=== PATIENT | male | born 1970 | race Caucasian/White ===

== ENCOUNTER → 2020-04-22 09:58 | Outpatient (BNVA) | payer MEDICAID, SELFPAY | PROVIDERS: Family Provider Family Medicine; PCP Family Medicine; Visit Provider Family Medicine | DX: I10 Essential (primary) hypertension (principal); E78.2 Mixed hyperlipidemia; R79.89 Other specified abnormal findings of blood chemistry; Z72.0 Tobacco use | CPT/HCPCS: 80053 ==

== ENCOUNTER → 2020-06-02 16:00 | Outpatient (BNVA) | payer MEDICAID, SELFPAY | PROVIDERS: Family Provider Family Medicine; PCP Family Medicine; Visit Provider Family Medicine | DX: N18.3 Chronic kidney disease, stage 3 (moderate) (principal) | CPT/HCPCS: 80048; 81000; 85025 ==

== ENCOUNTER → 2020-09-02 12:41 | Outpatient (BNVA) | payer MEDICAID, SELFPAY | PROVIDERS: Family Provider Family Medicine; PCP Family Medicine; Visit Provider Internal Medicine | DX: N18.30 Chronic kidney disease, stage 3 unspecified (principal) | CPT/HCPCS: 80069; 81003; 82043; 82306; 82310; 83970; 85025 ==

== ENCOUNTER → 2020-11-09 18:00 | Outpatient (BNVA) | payer MEDICAID, SELFPAY | PROVIDERS: Family Provider Family Medicine; PCP Family Medicine; Visit Provider Family Medicine | DX: I10 Essential (primary) hypertension (principal); E55.9 Vitamin D deficiency, unspecified; E78.2 Mixed hyperlipidemia; Z72.0 Tobacco use; E34.9 Endocrine disorder, unspecified | CPT/HCPCS: 80048; 80061 ==

== ENCOUNTER 2020-11-15 16:15 | Emergency (ER) | payer MEDICAID, SELFPAY ==
[2020-11-15 16:21] VITALS: BP 116/67; PULSE 83; RESP 18; TEMP 36.7; O2SAT 99; BMI 26.5
[2020-11-15 16:34] VITALS: BP 110/64; PULSE 81; RESP 20; O2SAT 100
--- NOTE | 2020-11-15 16:35 | XRR_ITS ---
PROCEDURE INFORMATION: Exam: XR Chest, 1 View Exam date and time: 11/15/2020 4:37 PM Age: 49 years old Clinical indication: Chest pain; Type not specified TECHNIQUE: Imaging protocol: XR of the chest Views: 1 view. COMPARISON: No relevant prior studies available. FINDINGS: Lungs: A calcified granuloma is seen in the right lung base. No acute airspace process is seen. Pleural space: Unremarkable. No pleural effusion. No pneumothorax. Heart/Mediastinum: Unremarkable. No cardiomegaly. Bones/joints: Unremarkable. XR/XR chest 1V portable [id number] IMPRESSION: No acute cardiopulmonary abnormality.
--- NOTE | 2020-11-15 16:36 | ECG_ITS ---
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
[2020-11-15 16:47] LABS: Basophils % 0.2 %; Eosinophils # 0.1 10^3/uL (0.0-0.8); Eosinophils % 0.8 %; Hemoglobin 11.6 g/dL (11.7-16.6); Lymphocytes # 1.3 10^3/uL (0.8-4.8); Lymphocytes % 14.8 %; Mean Corpuscular HGB Conc 32.2 g/dL (30.0-36.0); Mean Corpuscular Hemoglobin 29.1 pg (28.0-34.0); Mean Corpuscular Volume 90.2 fL (80-94); Mean Platelet Volume 11.3 fL (7.4-10.4); Monocytes # 0.8 10^3/uL (0.2-0.9); Monocytes % 9.7 %; Neutrophils # 6.31 10^3/uL (1.8-7.7); Neutrophils % 74.1 %; Nucleated Red Blood Cells % 0 %; Platelet Count 256 10^3/cmm (130-400); Red Blood Count 3.99 10^6/uL (4.1-5.3); Red Cell Distribution Width 13.3 % (12.1-15.1); White Blood Count 8.5 10^3/uL (4.0-10.0)
--- NOTE | 2020-11-15 16:55 | W.ED.ANXIETY ---
HPI - Anxiety General: Chief Complaint: Anxiety Stated Complaint: ANXIETY Time Seen by Provider: 11/15/20 16:22 Source: patient and family History of Present Illness: HPI narrative: Patient presents requesting medication for anxiety. He states that over the past month he has had multiple episodes of panic attacks where he is had chest pain and shortness of breath. He denies having any symptoms at present. He states that he was seen in a previous ER at [place] last week and then discharged home but did not get anything for anxiety. Family states that he has these attacks quite frequently. And that they have been worsening over the past month. They also state that he was recently told he had low potassium but they do not know how low it was. They state that he was given medication for his potassium but he has not started it yet. MD complaint: anxiety Onset (ago): month(s) (1) Associated symptoms: Reports chest pain and palpitations; Deny fever(s) or headache(s) Review of Systems General: Reports: 10 or more systems reviewed and unremarkable except in HPI and below Const: Denies: fever(s) Eyes: Denies: change in vision ENMT: Denies: throat pain Card: Reports: chest pain and palpitations Resp: Reports: dyspnea GI: Denies: abdominal pain : Denies: flank pain Musc: Denies: neck pain Skin/Breast: Denies: rash Neuro: Denies: headache(s) Psych: Reports: anxiety PFS ED PFSH: Medical History (Updated 11/15/20 @ 17:35 by Ricardo Alcantara MD) CKD (chronic kidney disease) Compression fracture of thoracic vertebra with routine healing Hyperlipidemia Hypertension Social History (Updated 11/09/20 @ 13:33 by Angelcia Ramirez LPN) Smoking and tobacco status: current every day smoker smokeless tobacco Alcohol intake: current Physical Exam Const: COMMON NORMALS: no acute distress, average body habitus, patient oriented x3, no limitations, healthy appearing, alert and well nourished HENMT: COMMON NORMALS: normocephalic, atraumatic, hearing grossly normal bilaterally, external ears normal, EAC's normal, TM's normal bilaterally, Normal external nose present, Normal nasal mucous membranes and turbinates present, moist oral mucous membranes, oropharynx normal, dentition normal and gingiva normal HEAD & SCALP: normocephalic and atraumatic NOSE: Normal external nose present and Normal nasal mucous membranes and turbinates present EXTERNAL EAR: Yes external ears normal EXTERNAL AUDITORY CANAL: EAC's normal TYMPANIC MEMBRANE: TM's normal bilaterally Eye: COMMON NORMALS: Equal, round and reactive pupils present, EOMs intact bilaterally, conjunctivae normal, no scleral icterus, no papilledema, normal visual samson by confrontation and fundi normal bilaterally CONJUNCTIVA: Yes conjunctivae normal PUPIL: Yes Equal, round and reactive pupils present DIRECT OPHTHALMOSCOPY: Yes no papilledema and Yes fundi normal bilaterally Neck/C-Spine: COMMON NORMALS: no JVD Chest: COMMONS NORMALS: normal inspection of the chest, normal palpation of entire chest wall, normal inspection of the breasts and normal palpation of the breasts Breast/axilla inspection: Yes normal inspection of the breasts BREAST/AXILLA PALPATION: Yes normal palpation of the breasts Resp: COMMON NORMALS: normal respiratory effort, No retractions, No use of accessory muscles, clear to auscultation bilaterally and percussion normal AUSCULTATION: clear to auscultation bilaterally PERCUSSION: percussion normal Cardio: COMMON NORMALS: no JVD, regular rate, regular rhythm, S1 normal heart sound present, S2 normal heart sound present, No gallops present (Cardio), No clicks present (Cardio), No murmurs present (Cardio), No rub (Cardio) and Peripheral pulses 2+ throughout RATE: regular rate RHYTHM: regular rhythm HEART SOUNDS: S1 normal heart sound present and S2 normal heart sound present PERIPHERAL PULSES: Peripheral pulses 2+ throughout GI: COMMON NORMALS: Normal to inspection, nondistended, normoactive bowel sounds present, Soft to palpation, non-tender, No hepatosplenomegaly present, no masses and no bruits PALPATION: Yes Soft to palpation and Yes No hepatosplenomegaly present : COMMON NORMALS: Yes no CVA tenderness, Yes normal external exam, Yes Testes normal, Yes scrotum normal, Yes no scrotal swelling and Yes No hernias present BLADDER/KIDNEY EXAM: Yes no CVA tenderness Back/Pelvis: COMMON NORMALS: no CVA tenderness Neuro: COMMON NORMALS: patient oriented x3 SENSORIUM/ORIENTATION: Yes alert Psych: COMMON NORMALS: mental status grossly normal and speech normal ATTITUDE: Yes calm SPEECH: Yes normal speech Course Vital Signs: Vital signs: Vital Signs Temperature 98.1 F 11/15/20 16:21 Pulse Rate 81 11/15/20 16:34 Respiratory Rate 20 H 11/15/20 16:34 Blood Pressure 110/64 11/15/20 16:34 Pulse Oximetry 100 11/15/20 16:34 MDM - Anxiety MDM Narrative: Medical decision making narrative: At present patient is calm and asymptomatic. Denies having any chest pain or shortness of breath at present. We will check some basic labs and if no significant abnormality will discharge patient home with Vistaril for his anxiety. Lab Data: Labs: Lab Results 11/15/20 11/15/20 11/15/20 Range/Units 16:42 16:42 16:42 WBC 8.5 (4.0-10.0) 10^3/ uL RBC 3.99 L (4.1-5.3) 10^6/u L Hgb 11.6 L (11.7-16.6) g/dL Hct 36.0 L (42.0-52.0) % MCV 90.2 (80-94) fL MCH 29.1 (28.0-34.0) pg MCHC 32.2 (30.0-36.0) g/dL RDW 13.3 (12.1-15.1) % Plt Count 256 (130-400) 10^3/c mm MPV 11.3 H (7.4-10.4) fL Neut % (Auto) 74.1 % Lymph % (Auto) 14.8 % [place] % (Auto) 9.7 % Eos % (Auto) 0.8 % Baso % (Auto) 0.2 % Neut # (Auto) 6.31 (1.8-7.7) 10^3/u L Lymph # (Auto) 1.3 (0.8-4.8) 10^3/u L [place] # (Auto) 0.8 (0.2-0.9) 10^3/u L Eos # (Auto) 0.1 (0.0-0.8) 10^3/u L Baso # (Auto) 0.0 (0.0-0.1) 10^3/u L Nucleated RBC % (a uto) 0 % Nucleated RBCs # 0.0 /100WBC Sodium 141 (136-145) mmol/L Potassium 3.6 (3.5-5.1) mmol/L Chloride 102 (98-107) mmol/L Carbon Dioxide 29 (22-29) mmol/L Anion Gap 13.6 (5-19) BUN 16 (6-20) mg/dL Creatinine 1.7 H (0.7-1.2) mg/dL GFR Calculation 42.7 L (90-130) mL/min Glucose 99 (65-115) mg/dL Calculated Osmolal ity 293 (285-295) mOsm/k g Calcium 8.9 (8.5-10.5) mg/dL Total Bilirubin 0.9 (0.15-1.2) mg/dL AST 19 (0-40) U/L ALT 12 (0-41) U/L Alkaline Phosphata se 99 (40-130) IU/L Troponin T Gen 5 n g/L 6 (0-15) ng/L Total Protein 8.0 (6.6-8.7) g/dL Albumin 3.8 (3.5-5.2) g/dL Globulin 4.2 (1.3-4.6) g/dL Discharge Plan Discharge Patient Disposition: Home Clinical Impression: Acute anxiety Condition: Stable Prescriptions: New Vistaril 50 mg capsule 50 mg PO BID PRN (Reason: anxiety) Qty: 30 RF: 0 No Action cholecalciferol (vitamin D3) [D3-50 Cholecalciferol] 1,250 mcg (50,000 unit) capsule 1,250 mcg PO .weekly 90 Days Qty: 13 RF: 1 potassium chloride 8 mEq tablet extended release 8 meq PO DAILY 90 Days Qty: 90 RF: 1 Tylenol Extra Strength 500 mg Tablet 1,000 mg PO PRN RF: 0 atorvastatin 20 mg tablet 20 mg PO QPM RF: 0 hydrochlorothiazide 25 mg tablet 25 mg PO QAM RF: 0 Discharge Orders: Discharge ED (Routine); Ordered 11/15/20 Ordered By: Ricardo Alcantara Referrals: Isamar Lyn MD [Primary Care Provider] - Coding Level of Care Code ED Housekeeper Nanny for Chg Fwd Exam Comprehensive
[2020-11-15 17:09] LABS: Alanine Aminotransferase 12 U/L (0-41); Albumin Level 3.8 g/dL (3.5-5.2); Alkaline Phosphatase 99 IU/L (40-130); Aspartate Amino Transferase 19 U/L (0-40); Blood Urea Nitrogen 16 mg/dL (6-20); Calcium 8.9 mg/dL (8.5-10.5); Carbon Dioxide 29 mmol/L (22-29); Chloride 102 mmol/L (98-107); Glomerular Filtration Rate 42.7 mL/min (90-130); Glucose 99 mg/dL (65-115); Osmolality Calculated 293 mOsm/kg (285-295); Sodium 141 mmol/L (136-145); Total Bilirubin 0.9 mg/dL (0.15-1.2)
[2020-11-15 17:11] LABS: Troponin T (5th) Once 6 ng/L (0-15)
[2020-11-15 17:28] LABS: Anion Gap 13.6 (5-19); Potassium 3.6 mmol/L (3.5-5.1)
[2020-11-15 17:45] VITALS: BP 111/76; PULSE 72; RESP 16; O2SAT 98
[2020-11-16 19:59] LABS: Globulin 2.3 g/dL (1.3-4.6); Total Protein 6.1 g/dL (6.6-8.7)
== END 2020-11-15 17:46 | disposition home or self-care (01) ==
PROVIDERS: Emergency Provider Emergency Medicine; PCP Family Medicine
DX: F41.9 Anxiety disorder, unspecified (principal); E78.5 Hyperlipidemia, unspecified; I10 Essential (primary) hypertension; F17.210 Nicotine dependence, cigarettes, uncomplicated
CPT/HCPCS: 12345; 71045; 80053; 84484; 85025; 93005; 99282; 99283

== ENCOUNTER 2020-11-27 07:58 | Emergency (ER) | payer MEDICAID, SELFPAY ==
[2020-11-27 07:59] VITALS: BP 153/86; PULSE 83; RESP 16; TEMP 36.5; O2SAT 99; BMI 29.2
--- NOTE | 2020-11-27 08:00 | XR_ITS ---
WS: [id number] Portable AP upright chest, 11/27/2020 Clinical Data: dyspnea/cough Comparison: Portable chest, 11/15/2020. Findings: No nodules, masses or effusions are seen. The heart is normal. The pulmonary vascularity is not increased. No pneumonia or pneumothorax is seen. The aortic arch is minimally tortuous. XR/XR chest 1V portable [id number] Impression: Atherosclerosis.
[2020-11-27 08:05] VITALS: BP 153/86; PULSE 82; RESP 18; O2SAT 100
--- NOTE | 2020-11-27 08:12 | ECG_ITS ---
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 Measurements Intervals [place] Rate: 76 P: 73 [place]: 137 QRS: 23 QRSD: 94 T: 48 QT: 406 QTc: 459 Interpretive Statements SINUS RHYTHM Compared to ECG 11/15/2020 17:06:27 No significant changes Electronically Signed On 11-28-2020 10:58:53 HOUSETRAILER SERVICER by Daniele Chun M.D. [id number] f
--- NOTE | 2020-11-27 08:14 | W.ED.DIZZY ---
HPI - Dizziness General: Chief Complaint: Dizziness Stated Complaint: DIZZINESS Time Seen by Provider: 11/27/20 07:59 History of Present Illness: HPI Narrative: 49 yo male comes in complaining of dizziness lightheadedness. Is worse when he first sits. He did drink hard liquor this morning. He took hydroxyzine last night and seemed to get better. He still little bit dizzy now but he states that is much better than it was he denies any chest pain no nausea vomiting diarrhea shortness of breath cough myalgias. MD elicited complaint: dizziness and lightheadedness Onset (ago): hour(s) Timing: gradual onset Severity: mild Description: sense of movement Context: other (Alcohol) History of similar symptoms: Yes Exacerbating factors: change in body position Relieving factors: remaining still Associated symptoms: Denies change in hearing, chest pain, chills, cough, diaphoresis, ear discharge, ear pressure, fevers/chills, headache(s), malaise, nausea, nasal congestion, palpitations, rash, short of breath, syncope, tinnitus, vomiting or weakness Associated neuro symptoms: Deny confusion, difficulty speaking, dysphagia, diplopia, extremity weakness, facial numbness, facial weakness, gait changes, numbness in extremities or visual changes Review of Systems Const: Denies: chills, malaise or diaphoresis ENMT: Denies: ear discharge, change in hearing, tinnitus or nasal congestion Card: Denies: chest pain, palpitations or syncope Resp: Denies: dyspnea, productive cough or non-productive cough GI: Denies: vomiting or dysphagia : Denies: flank pain, dysuria, urinary frequency or urinary urgency Skin/Breast: Denies: rash or pruritus Neuro: Denies: headache(s), numbness in extremities or confusion PFSH ED PFSH: Medical History CKD (chronic kidney disease) Compression fracture of thoracic vertebra with routine healing MARY GRACE (generalized anxiety disorder) Hyperlipidemia Hypertension Social History Smoking and tobacco status: current every day smoker smokeless tobacco Alcohol intake: current Physical Exam Const: COMMON NORMALS: no acute distress GENERAL APPEARANCE: cooperative and comfortable ORIENTATION/CONSCIOUSNESS: Yes awake, Yes oriented to person, Yes oriented to place and Yes oriented to time HENMT: COMMON NORMALS: normocephalic, atraumatic, hearing grossly normal bilaterally, external ears normal, EAC's normal, TM's normal bilaterally, Normal nasal mucous membranes and turbinates present, moist oral mucous membranes and oropharynx normal HEAD & SCALP: normocephalic and atraumatic NOSE: Normal nasal mucous membranes and turbinates present EXTERNAL EAR: Yes external ears normal EXTERNAL AUDITORY CANAL: EAC's normal TYMPANIC MEMBRANE: TM's normal bilaterally Eye: COMMON NORMALS: Equal, round and reactive pupils present, EOMs intact bilaterally, conjunctivae normal and no scleral icterus CONJUNCTIVA: Yes conjunctivae normal PUPIL: Yes Equal, round and reactive pupils present Neck/C-Spine: COMMON NORMALS: no JVD Resp: COMMON NORMALS: normal respiratory effort, No retractions, No use of accessory muscles and clear to auscultation bilaterally AUSCULTATION: clear to auscultation bilaterally Cardio: COMMON NORMALS: no JVD, regular rate, regular rhythm and No murmurs present (Cardio) RATE: regular rate RHYTHM: regular rhythm GI: COMMON NORMALS: Soft to palpation and No hepatosplenomegaly present AUSCULTATION: Yes normoactive bowel sounds PALPATION: Yes Soft to palpation, No Tenderness to palpation present (GI), No Guarding due to palpation present (GI) and Yes No hepatosplenomegaly present Extremity: COMMON NORMALS: normal to inspection, capillary refill normal, no clubbing, cyanosis or edema, no calf tenderness and no pedal edema Neuro: SENSORIUM/ORIENTATION: Yes oriented to person, Yes oriented to place and Yes oriented to time Skin: COMMON NORMALS: no rashes or lesions noted GENERAL SKIN EXAM: no rashes or lesions noted Course Vital Signs: Vital signs: Vital Signs Temperature 97.7 F 11/27/20 11:50 Pulse Rate 86 11/27/20 11:50 Respiratory Rate 18 11/27/20 11:50 Blood Pressure 152/67 11/27/20 11:50 Pulse Oximetry 99 11/27/20 11:50 MDM - Dizziness MDM Narrative: Medical decision making narrative: The alcohol did play a role in some of his blood pressures blood pressure little bit high. We will add amlodipine 2.5 p.o. daily have him follow-up with his regular doctor next week worsening or problems or changes return. Avoid alcohol Lab Data: Labs: Lab Results 11/27/20 11/27/20 11/27/20 Range/Units 08:27 08:27 08:27 WBC 8.3 (4.0-10.0) 10^3/ uL RBC 4.09 L (4.1-5.3) 10^6/u L Hgb 12.0 (11.7-16.6) g/dL Hct 37.9 L (42.0-52.0) % MCV 92.7 (80-94) fL MCH 29.3 (28.0-34.0) pg MCHC 31.7 (30.0-36.0) g/dL RDW 15.1 (12.1-15.1) % Plt Count 184 (130-400) 10^3/c mm MPV 11.5 H (7.4-10.4) fL Neut % (Auto) 71.9 % Lymph % (Auto) 17.1 % [place] % (Auto) 7.6 % Eos % (Auto) 2.2 % Baso % (Auto) 0.8 % Neut # (Auto) 5.93 (1.8-7.7) 10^3/u L Lymph # (Auto) 1.4 (0.8-4.8) 10^3/u L [place] # (Auto) 0.6 (0.2-0.9) 10^3/u L Eos # (Auto) 0.2 (0.0-0.8) 10^3/u L Baso # (Auto) 0.1 (0.0-0.1) 10^3/u L Nucleated RBC % (a uto) 0 % Nucleated RBCs # 0.0 /100WBC Sodium Cancelled Potassium Cancelled Chloride Cancelled Carbon Dioxide Cancelled Anion Gap Cancelled BUN Cancelled Creatinine Cancelled GFR Calculation Cancelled Glucose Cancelled Calculated Osmolal ity Cancelled Calcium Cancelled Total Bilirubin Cancelled AST Cancelled ALT Cancelled Alkaline Phosphata se Cancelled Troponin T Baselin e Cancelled Troponin T 120 Min [place] (0-15) ng/L Delta Troponin T (0-10) ABS# Total Protein Cancelled Albumin Cancelled Globulin Cancelled Urine Color (Yellow) Urine Appearance (CLEAR) Urine pH (5-7) Ur Specific Gravit y (1.005-1.030) Urine Protein (Negative) Urine Glucose (UA) (Normal) Urine Ketones (Negative) Urine Blood (Negative) Urine Nitrate (Negative) Urine Bilirubin (Negative) Urine Urobilinogen (Negative) mg/dL Ur Leukocyte Jenae ase (Negative) Ethyl Alcohol Cancelled 11/27/20 11/27/20 11/27/20 Range/Units 08:33 08:52 08:52 WBC (4.0-10.0) 10^3/ uL RBC (4.1-5.3) 10^6/u L Hgb (11.7-16.6) g/dL Hct (42.0-52.0) % MCV (80-94) fL MCH (28.0-34.0) pg MCHC (30.0-36.0) g/dL RDW (12.1-15.1) % Plt Count (130-400) 10^3/c mm MPV (7.4-10.4) fL Neut % (Auto) % Lymph % (Auto) % [place] % (Auto) % Eos % (Auto) % Baso % (Auto) % Neut # (Auto) (1.8-7.7) 10^3/u L Lymph # (Auto) (0.8-4.8) 10^3/u L [place] # (Auto) (0.2-0.9) 10^3/u L Eos # (Auto) (0.0-0.8) 10^3/u L Baso # (Auto) (0.0-0.1) 10^3/u L Nucleated RBC % (a uto) % Nucleated RBCs # /100WBC Sodium 133 L Potassium 3.9 Chloride 100 Carbon Dioxide 23 Anion Gap 13.9 BUN 12 Creatinine 1.5 H GFR Calculation 49.3 L Glucose 98 Calculated Osmolal ity 276 L Calcium 9.0 Total Bilirubin 0.7 AST 17 ALT 8 Alkaline Phosphata se 107 Troponin T Baselin e 8 Troponin T 120 Min [place] (0-15) ng/L Delta Troponin T (0-10) ABS# Total Protein 7.0 Albumin 4.1 Globulin 2.9 Urine Color Yellow (Yellow) Urine Appearance Clear (CLEAR) Urine pH 5 (5-7) Ur Specific Gravit y 1.015 (1.005-1.030) Urine Protein Neg (Negative) Urine Glucose (UA) Norm (Normal) Urine Ketones Negative (Negative) Urine Blood Neg (Negative) Urine Nitrate Negative (Negative) Urine Bilirubin Neg (Negative) Urine Urobilinogen Norm (Negative) mg/dL Ur Leukocyte Jenae ase Negative (Negative) Ethyl Alcohol < 10 11/27/20 Range/Units 10:18 WBC (4.0-10.0) 10^3/ uL RBC (4.1-5.3) 10^6/u L Hgb (11.7-16.6) g/dL Hct (42.0-52.0) % MCV (80-94) fL MCH (28.0-34.0) pg MCHC (30.0-36.0) g/dL RDW (12.1-15.1) % Plt Count (130-400) 10^3/c mm MPV (7.4-10.4) fL Neut % (Auto) % Lymph % (Auto) % [place] % (Auto) % Eos % (Auto) % Baso % (Auto) % Neut # (Auto) (1.8-7.7) 10^3/u L Lymph # (Auto) (0.8-4.8) 10^3/u L [place] # (Auto) (0.2-0.9) 10^3/u L Eos # (Auto) (0.0-0.8) 10^3/u L Baso # (Auto) (0.0-0.1) 10^3/u L Nucleated RBC % (a uto) % Nucleated RBCs # /100WBC Sodium Potassium Chloride Carbon Dioxide Anion Gap BUN Creatinine GFR Calculation Glucose Calculated Osmolal ity Calcium Total Bilirubin AST ALT Alkaline Phosphata se Troponin T Baselin e Troponin T 120 Min [place] 6.71 (0-15) ng/L Delta Troponin T -1.29 L (0-10) ABS# Total Protein Albumin Globulin Urine Color (Yellow) Urine Appearance (CLEAR) Urine pH (5-7) Ur Specific Gravit y (1.005-1.030) Urine Protein (Negative) Urine Glucose (UA) (Normal) Urine Ketones (Negative) Urine Blood (Negative) Urine Nitrate (Negative) Urine Bilirubin (Negative) Urine Urobilinogen (Negative) mg/dL Ur Leukocyte Jenae ase (Negative) Ethyl Alcohol Discharge Plan Discharge Patient Disposition: Home Clinical Impression: Hypertension, Dizziness Condition: Stable Prescriptions: New amlodipine 2.5 mg tablet 2.5 mg PO DAILY Qty: 30 RF: 0 No Action Celexa 10 mg tablet 10 mg PO DAILY@20 RF: 0 hydroxyzine HCl 50 mg tablet 50 mg PO BID PRN (Reason: anxiety/panic attack) RF: 0 potassium chloride 8 mEq tablet extended release 8 meq PO DAILY@20 RF: 0 D3-50 Cholecalciferol 1,250 mcg (50,000 unit) capsule 50,000 unit PO Q7D RF: 0 atorvastatin 20 mg tablet 20 mg PO QPM RF: 0 hydrochlorothiazide 25 mg tablet 25 mg PO DAILY@10 RF: 0 Discharge Orders: Discharge ED (Routine); Ordered 11/27/20 Ordered By: Isaias Rucker Referrals: Isamar Lyn MD [Primary Care Provider] - Discharge Diet: Usual diet Discharge Activity: Resume usual activity Activity Restrictions/Additional Instructions: Follow-up with your primary care doctor next week to reevaluate blood pressure Coding Level of Care Code ED Fruit And Vegetable Inspector for Javier Brown
[2020-11-27 08:36] VITALS: BP 160/96; PULSE 76; RESP 18; O2SAT 99
[2020-11-27 08:40] LABS: Add Urine Microscopic? NO
[2020-11-27 08:53] LABS: Basophils # 0.1 10^3/uL (0.0-0.1); Basophils % 0.8 %; Eosinophils # 0.2 10^3/uL (0.0-0.8); Eosinophils % 2.2 %; Hematocrit 37.9 % (42.0-52.0); Lymphocytes # 1.4 10^3/uL (0.8-4.8); Lymphocytes % 17.1 %; Mean Corpuscular HGB Conc 31.7 g/dL (30.0-36.0); Mean Corpuscular Hemoglobin 29.3 pg (28.0-34.0); Mean Corpuscular Volume 92.7 fL (80-94); Mean Platelet Volume 11.5 fL (7.4-10.4); Monocytes # 0.6 10^3/uL (0.2-0.9); Monocytes % 7.6 %; Neutrophils # 5.93 10^3/uL (1.8-7.7); Neutrophils % 71.9 %; Nucleated Red Blood Cells % 0 %; Platelet Count 184 10^3/cmm (130-400); Red Blood Count 4.09 10^6/uL (4.1-5.3); Red Cell Distribution Width 15.1 % (12.1-15.1); White Blood Count 8.3 10^3/uL (4.0-10.0)
[2020-11-27 08:54] LABS: Bilirubin Urine Neg (Negative); Blood Urine Neg (Negative); Glucose Urine UA Norm (Normal); Ketones Urine Negative (Negative); Leukocyte Esterase Urine Negative (Negative); Nitrate Urine Negative (Negative); Protein Urine Neg (Negative); Specific Gravity, Urine 1.015 (1.005-1.030); Urine Appearance Clear (CLEAR); Urine Color Yellow (Yellow); Urobilinogen Urine Norm (Negative); pH Urine 5 (5-7)
[2020-11-27 09:12] LABS: Troponin(5th) Baseline 8 ng/L (0-15)
[2020-11-27 09:25] VITALS: BP 166/98; PULSE 67; RESP 18; O2SAT 100
--- NOTE | 2020-11-27 09:25 | PC.NURSE ---
Informed Dr Rucker of pressure 166/98. No order were received
[2020-11-27 09:27] LABS: Alanine Aminotransferase 8 U/L (0-41); Albumin Level 4.1 g/dL (3.5-5.2); Alkaline Phosphatase 107 IU/L (40-130); Blood Urea Nitrogen 12 mg/dL (6-20); Carbon Dioxide 23 mmol/L (22-29); Chloride 100 mmol/L (98-107); Globulin 2.9 g/dL (1.3-4.6); Glomerular Filtration Rate 49.3 mL/min (90-130); Glucose 98 mg/dL (65-115); Osmolality Calculated 276 mOsm/kg (285-295); Sodium 133 mmol/L (136-145); Total Bilirubin 0.7 mg/dL (0.15-1.2)
[2020-11-27 09:32] LABS: Alcohol Level < 10 mg/dL (0-10); Anion Gap 13.9 (5-19); Potassium 3.9 mmol/L (3.5-5.1)
[2020-11-27 09:33] LABS: Aspartate Amino Transferase 17 U/L (0-40)
--- NOTE | 2020-11-27 10:12 | ECG_ITS ---
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 Measurements Intervals [place] Rate: 62 P: 76 NC: 128 QRS: 30 QRSD: 102 T: 50 QT: 421 QTc: 430 Interpretive Statements SINUS RHYTHM Compared to ECG 11/27/2020 08:16:19 No significant changes Electronically Signed On 11-28-2020 11:09:18 INSPECTOR INTEGRATED CIRCUITS by Daniele Chun M.D. [id number]
[2020-11-27 10:58] LABS: Troponin 5 2HR 6.71 ng/L (0-15); Troponin 5 2HR Delta -1.29 ABS# (0-10)
[2020-11-27 11:00] VITALS: BP 152/106; PULSE 87; RESP 17; O2SAT 94
[2020-11-27 11:50] VITALS: BP 152/67; PULSE 86; RESP 18; TEMP 36.5; O2SAT 99
== END 2020-11-27 11:52 | disposition home or self-care (01) ==
PROVIDERS: Emergency Provider Family Medicine; PCP Family Medicine
DX: R42 Dizziness and giddiness (principal); I10 Essential (primary) hypertension; E78.5 Hyperlipidemia, unspecified; F17.210 Nicotine dependence, cigarettes, uncomplicated
CPT/HCPCS: 12345; 36415; 71045; 80053; 80307; 81003; 84484; 85025; 93005; 99283

== ENCOUNTER 2021-02-02 05:37 | Emergency (ER) | payer MEDICAID, SELFPAY ==
[2021-02-02 05:39] VITALS: BP 135/90; PULSE 66; RESP 19; TEMP 36.6; O2SAT 99; BMI 23.5
--- NOTE | 2021-02-02 05:52 | XRR_ITS ---
PROCEDURE INFORMATION: Exam: XR Right Ribs with PA Chest Exam date and time: 02/02/2021 6:12 AM Age: 50 years old Clinical indication: Chest wall pain; Right; Patient HX: Moving wood, now rib pain TECHNIQUE: Imaging protocol: XR Right ribs with PA chest. Views: 3 views COMPARISON: CR XR chest 1V portable [id number] 11/27/2020 8:26 AM FINDINGS: Lungs: Calcified granuloma near the right costophrenic angle. Pleural spaces: Unremarkable. No pleural effusion. No pneumothorax. Heart/Mediastinum: Unremarkable. No cardiomegaly. Bones/joints: Degenerative change of the spine. Chronic fracture deformity lateral right 6th rib. Soft tissues: Likely left nipple shadow overlies the lower left lung. XR/XR ribs RT mn 3V w CXR1V [id number] IMPRESSION: 1. No acute cardiopulmonary process. 2. Most probable nipple shadow overlying the lower left lung on the frontal chest. 3. No acute right rib abnormality.
[2021-02-02 05:59] VITALS: BP 148/88; PULSE 65; RESP 16; O2SAT 100
--- NOTE | 2021-02-02 06:06 | ED_ITS ---
HPI - General Adult General: Chief complaint: General Medical Stated complaint: RIB PAIN Time Seen by Provider: 02/02/21 05:50 History of Present Illness: HPI narrative: 50-year-old male presents emergency room with complaint of right-sided rib pain. Woke him up overnight. The only precipitating factor he can identify as he was loading wood earlier tonight. Is a history of a thoracic compression fracture. Side he is wearing a lumbar belt up around his lower ribs because of the discomfort he had. There is no real precipitating event. With palpation can precipitate some discomfort in the posterior axillary line on the right at the level of the ninth and 10th ribs. He denies cough denies hematochezia. Denies dysuria urgency or frequency. Onset (ago): minute(s) Location: chest (Right ribs) and right Radiation: non-radiation Severity: mild Quality: sharp Pain Consistency: constant Relieving factors: none Exacerbating factors: none Associated symptoms: Deny chest pain, confusion, cough, diaphoresis, decreased appetite, dyspnea, fevers/chills, headache(s), malaise, nausea, rash, palpitations, seizures, short of breath, syncope, vomiting or weakness Treatments prior to arrival: other (Acetaminophen) Review of Systems Const: Denies: malaise or diaphoresis ENMT: Denies: throat pain, ear or mastoid pain, nasal discharge or nasal congestion Card: Denies: chest pain, palpitations or syncope Resp: Denies: dyspnea GI: Denies: nausea or vomiting : Denies: flank pain, dysuria, urinary frequency or urinary urgency Skin/Breast: Denies: rash Neuro: Denies: headache(s) or confusion [facility] ED PFSH: Medical History CKD (chronic kidney disease) Compression fracture of thoracic vertebra with routine healing MARY GRACE (generalized anxiety disorder) Hyperlipidemia Hypertension Family History Other CAD (coronary artery disease) Diabetes Hypertension Myocardial infarction Stroke Social History Smoking and tobacco status: current every day smoker smokeless tobacco Alcohol intake: current Physical Exam Const: COMMON NORMALS: no acute distress GENERAL APPEARANCE: cooperative and comfortable ORIENTATION/CONSCIOUSNESS: Yes awake, Yes oriented to person, Yes oriented to place and Yes oriented to time HENMT: COMMON NORMALS: normocephalic, atraumatic and hearing grossly normal bilaterally HEAD & SCALP: normocephalic and atraumatic Neck/C-Spine: COMMON NORMALS: no JVD Resp: COMMON NORMALS: normal respiratory effort, No retractions, No use of accessory muscles and clear to auscultation bilaterally AUSCULTATION: clear to auscultation bilaterally Cardio: COMMON NORMALS: no JVD, regular rate, regular rhythm and No murmurs present (Cardio) RATE: regular rate RHYTHM: regular rhythm GI: COMMON NORMALS: Soft to palpation and No hepatosplenomegaly present AUSCULTATION: Yes normoactive bowel sounds PALPATION: Yes Soft to palpation, No Tenderness to palpation present (GI), No Guarding due to palpation present (GI) and Yes No hepatosplenomegaly present Extremity: COMMON NORMALS: normal to inspection, capillary refill normal, no clubbing, cyanosis or edema, no calf tenderness and no pedal edema Neuro: SENSORIUM/ORIENTATION: Yes oriented to person, Yes oriented to place and Yes oriented to time Skin: COMMON NORMALS: no rashes or lesions noted GENERAL SKIN EXAM: no rashes or lesions noted Course Vital Signs: Vital signs: Vital Signs Temperature 97.9 F 02/02/21 05:39 Pulse Rate 65 02/02/21 06:41 Respiratory Rate 15 02/02/21 06:41 Blood Pressure 141/90 02/02/21 06:41 Pulse Oximetry 100 02/02/21 06:41 MDM - General Adult MDM Narrative: Medical decision making narrative: Is mildly hypokalemic for which she is also already on supplement. We will give him some p.o. here. Initially was can discharge him home on an anti-inflammatory but his creatinine is 1 5 give him a few tramadol to use as needed have him follow-up with his primary care doctor if symptoms worsen or change. Lab Data: Labs: Lab Results 02/02/21 02/02/21 02/02/21 Range/Units 06:14 06:14 06:39 WBC 8.3 (4.0-10.0) 10^3/ uL RBC 4.33 (4.1-5.3) 10^6/u L Hgb 12.8 (11.7-16.6) g/dL Hct 38.9 L (42.0-52.0) % MCV 89.8 (80-94) fL MCH 29.6 (28.0-34.0) pg MCHC 32.9 (30.0-36.0) g/dL RDW 12.9 (12.1-15.1) % Plt Count 210 (130-400) 10^3/c mm MPV 11.3 H (7.4-10.4) fL Neut % (Auto) 67.1 % Lymph % (Auto) 20.7 % [place] % (Auto) 9.5 % Eos % (Auto) 1.9 % Baso % (Auto) 0.6 % Neut # (Auto) 5.55 (1.8-7.7) 10^3/u L Lymph # (Auto) 1.7 (0.8-4.8) 10^3/u L [place] # (Auto) 0.8 (0.2-0.9) 10^3/u L Eos # (Auto) 0.2 (0.0-0.8) 10^3/u L Baso # (Auto) 0.1 (0.0-0.1) 10^3/u L Nucleated RBC % (a uto) 0 % Nucleated RBCs # 0.0 /100WBC Sodium 137 (136-145) mmol/L Potassium 3.0 L (3.5-5.1) mmol/L Chloride 97 L (98-107) mmol/L Carbon Dioxide 29 (22-29) mmol/L Anion Gap 14.0 (5-19) BUN 12 (6-20) mg/dL Creatinine 1.5 H (0.7-1.2) mg/dL GFR Calculation 49.1 L (90-130) mL/min Glucose 111 (65-115) mg/dL Calculated Osmolal ity 284 L (285-295) mOsm/k g Calcium 8.8 (8.5-10.5) mg/dL Total Bilirubin 0.9 (0.15-1.2) mg/dL AST 21 (0-40) U/L ALT 10 (0-41) U/L Alkaline Phosphata se 102 (40-130) IU/L Total Protein 7.3 (6.6-8.7) g/dL Albumin 4.6 (3.5-5.2) g/dL Globulin 2.7 (1.3-4.6) g/dL Urine Color Yellow (Yellow) Urine Appearance Clear (CLEAR) Urine pH 5 (5-7) Ur Specific Gravit y 1.010 (1.005-1.030) Urine Protein Neg (Negative) Urine Glucose (UA) Norm (Normal) Urine Ketones Negative (Negative) Urine Blood Neg (Negative) Urine Nitrate Negative (Negative) Urine Bilirubin Neg (Negative) Urine Urobilinogen Norm (Negative) mg/dL Ur Leukocyte Jenae ase Negative (Negative) Discharge Plan Discharge Patient Disposition: Home Clinical Impression: Rib pain, Hypokalemia Condition: Stable Prescriptions: New tramadol 50 mg tablet 50 mg PO Q6H PRN (Reason: pain) Qty: 10 RF: 0 No Action amlodipine 2.5 mg tablet 2.5 mg PO DAILY Qty: 30 RF: 0 Celexa 10 mg tablet 10 mg PO DAILY@20 RF: 0 hydroxyzine HCl 50 mg tablet 50 mg PO BID PRN (Reason: anxiety/panic attack) RF: 0 potassium chloride 8 mEq tablet extended release 8 meq PO DAILY@20 RF: 0 D3-50 Cholecalciferol 1,250 mcg (50,000 unit) capsule 50,000 unit PO Q7D RF: 0 atorvastatin 20 mg tablet 20 mg PO QPM RF: 0 hydrochlorothiazide 25 mg tablet 25 mg PO DAILY@10 RF: 0 Discharge Orders: Discharge ED (Routine); Ordered 02/02/21 Ordered By: Isaias Rucker Referrals: Isamar Lyn MD [Primary Care Provider] - Discharge Diet: Usual diet Discharge Activity: Resume usual activity Patient Instructions: Opioid Safety Coding Level of Care Code ED Network Announcer for Chg Fwd Exam Comprehensive
[2021-02-02 06:23] LABS: Basophils # 0.1 10^3/uL (0.0-0.1); Basophils % 0.6 %; Eosinophils # 0.2 10^3/uL (0.0-0.8); Eosinophils % 1.9 %; Hematocrit 38.9 % (42.0-52.0); Hemoglobin 12.8 g/dL (11.7-16.6); Lymphocytes # 1.7 10^3/uL (0.8-4.8); Lymphocytes % 20.7 %; Mean Corpuscular HGB Conc 32.9 g/dL (30.0-36.0); Mean Corpuscular Hemoglobin 29.6 pg (28.0-34.0); Mean Corpuscular Volume 89.8 fL (80-94); Mean Platelet Volume 11.3 fL (7.4-10.4); Monocytes # 0.8 10^3/uL (0.2-0.9); Monocytes % 9.5 %; Neutrophils # 5.55 10^3/uL (1.8-7.7); Neutrophils % 67.1 %; Nucleated Red Blood Cells % 0 %; Platelet Count 210 10^3/cmm (130-400); Red Blood Count 4.33 10^6/uL (4.1-5.3); Red Cell Distribution Width 12.9 % (12.1-15.1); White Blood Count 8.3 10^3/uL (4.0-10.0)
[2021-02-02] MEDS: HYDROcodone-acetaminophen 5-325 mg Tablet 1 TAB PO (06:30)
[2021-02-02 06:41] VITALS: BP 141/90; PULSE 65; RESP 15; O2SAT 100
[2021-02-02 06:43] LABS: Alanine Aminotransferase 10 U/L (0-41); Albumin Level 4.6 g/dL (3.5-5.2); Alkaline Phosphatase 102 IU/L (40-130); Aspartate Amino Transferase 21 U/L (0-40); Blood Urea Nitrogen 12 mg/dL (6-20); Calcium 8.8 mg/dL (8.5-10.5); Carbon Dioxide 29 mmol/L (22-29); Chloride 97 mmol/L (98-107); Globulin 2.7 g/dL (1.3-4.6); Glomerular Filtration Rate 49.1 mL/min (90-130); Glucose 111 mg/dL (65-115); Osmolality Calculated 284 mOsm/kg (285-295); Sodium 137 mmol/L (136-145); Total Bilirubin 0.9 mg/dL (0.15-1.2); Total Protein 7.3 g/dL (6.6-8.7)
[2021-02-02 06:50] LABS: Add Urine Microscopic? NO; Charge for UA Resulting for Rev
[2021-02-02 06:53] LABS: Urine Color Yellow (Yellow)
[2021-02-02 06:54] LABS: Bilirubin Urine Neg (Negative); Blood Urine Neg (Negative); Glucose Urine UA Norm (Normal); Ketones Urine Negative (Negative); Leukocyte Esterase Urine Negative (Negative); Nitrate Urine Negative (Negative); Protein Urine Neg (Negative); Urine Appearance Clear (CLEAR); Urobilinogen Urine Norm (Negative); pH Urine 5 (5-7)
[2021-02-02 07:12] VITALS: BP 126/82; PULSE 98; RESP 18; O2SAT 98
[2021-02-02] MEDS: potassium chloride oral liq 20 mEq/15 mL UDC 40 MEQ PO (07:24)
== END 2021-02-02 07:37 | disposition home or self-care (01) ==
PROVIDERS: Emergency Provider Family Medicine; PCP Family Medicine
DX: R07.81 Pleurodynia (principal); E87.6 Hypokalemia; E78.5 Hyperlipidemia, unspecified; I10 Essential (primary) hypertension; F17.210 Nicotine dependence, cigarettes, uncomplicated
CPT/HCPCS: 71101; 80053; 81003; 85025; 99283

== ENCOUNTER → 2021-02-15 11:02 | Outpatient (BNVA) | payer MEDICAID, SELFPAY | PROVIDERS: PCP Family Medicine; Visit Provider Internal Medicine Cardiovascular Disease | DX: I12.9 Hypertensive chronic kidney disease with stage 1 through stage 4 chronic kidney disease, or unspecified chronic kidney disease (principal); N18.30 Chronic kidney disease, stage 3 unspecified | CPT/HCPCS: 80048; 83735; 83880 ==

== ENCOUNTER → 2021-04-01 15:44 | Outpatient (BNVA) | payer MEDICAID, SELFPAY | PROVIDERS: PCP Family Medicine; Visit Provider Internal Medicine Cardiovascular Disease | DX: I12.9 Hypertensive chronic kidney disease with stage 1 through stage 4 chronic kidney disease, or unspecified chronic kidney disease (principal); N18.30 Chronic kidney disease, stage 3 unspecified; R42 Dizziness and giddiness; E78.2 Mixed hyperlipidemia; Z72.0 Tobacco use | CPT/HCPCS: 80048; 81003; 82043 ==

== ENCOUNTER → 2021-08-02 00:01 | Outpatient (BNVA) | payer MEDICAID, SELFPAY | PROVIDERS: PCP Family Medicine; Referring Provider Internal Medicine; Visit Provider Internal Medicine | DX: N18.30 Chronic kidney disease, stage 3 unspecified (principal) | CPT/HCPCS: 80069; 82043; 82310; 83970; 85025 ==

== ENCOUNTER → 2022-01-26 14:00 | Outpatient (BNVA) | payer MEDICAID, SELFPAY | PROVIDERS: PCP Family Medicine; Visit Provider Internal Medicine | DX: N18.32 Chronic kidney disease, stage 3b (principal) | CPT/HCPCS: 80069; 81000; 81003; 82043; 82306; 82310; 83970 ==

== ENCOUNTER → 2022-07-22 12:40 | Outpatient (BNVA) | payer MEDICAID, SELFPAY | PROVIDERS: PCP Family Medicine; Visit Provider Internal Medicine | DX: N18.9 Chronic kidney disease, unspecified (principal) | CPT/HCPCS: 80069; 82542; 82570; 82652; 84156; 85025 ==

== ENCOUNTER → 2023-03-16 09:53 | Outpatient (BNVA) | payer MEDICAID, SELFPAY | PROVIDERS: PCP Family Medicine; Visit Provider Internal Medicine | DX: N18.9 Chronic kidney disease, unspecified (principal) | CPT/HCPCS: 80069; 82306; 82310; 82570; 83970; 84156 ==

== ENCOUNTER → 2023-09-19 15:16 | Outpatient (BNVA) | payer MEDICAID, SELFPAY | PROVIDERS: PCP Family Medicine; Visit Provider Family Medicine | DX: E78.2 Mixed hyperlipidemia (principal); E78.5 Hyperlipidemia, unspecified; I10 Essential (primary) hypertension; N18.9 Chronic kidney disease, unspecified | CPT/HCPCS: 80061; 80069; 82043; 85025 ==

== ENCOUNTER → 2024-03-22 10:18 | Outpatient (BNVA) | payer MEDICAID, SELFPAY | PROVIDERS: PCP Family Medicine; Referring Provider Family Medicine; Visit Provider Family Medicine | DX: N18.30 Chronic kidney disease, stage 3 unspecified (principal) | CPT/HCPCS: 80069; 81003; 82043; 82310; 83970; 85025 ==

== ENCOUNTER → 2024-09-18 09:21 | Outpatient (BNVA) | payer MEDICAID, SELFPAY | PROVIDERS: PCP Family Medicine; Visit Provider Family Medicine | DX: N18.30 Chronic kidney disease, stage 3 unspecified (principal) | CPT/HCPCS: 80069; 82043; 82310; 83970; 85007; 85027 ==

== ENCOUNTER → 2024-10-24 10:21 | Outpatient (BNVA) | payer MEDICAID, SELFPAY | PROVIDERS: PCP Family Medicine; Visit Provider Family Medicine | DX: I10 Essential (primary) hypertension (principal); N18.30 Chronic kidney disease, stage 3 unspecified | CPT/HCPCS: 80048 ==

== ENCOUNTER → 2025-03-27 14:01 | Outpatient (BNVA) | payer MEDICAID, SELFPAY | PROVIDERS: PCP Family Medicine; Referring Provider Family Medicine; Visit Provider Family Medicine | DX: I12.9 Hypertensive chronic kidney disease with stage 1 through stage 4 chronic kidney disease, or unspecified chronic kidney disease (principal); E78.2 Mixed hyperlipidemia | CPT/HCPCS: 80048; 80061; 80069; 82043; 82310; 83970; 85025 ==

== ENCOUNTER → 2025-09-29 09:55 | Outpatient (BNVA) | payer MEDICAID, SELFPAY | PROVIDERS: PCP Family Medicine; Referring Provider Family Medicine; Visit Provider Family Medicine | DX: Z12.5 Encounter for screening for malignant neoplasm of prostate (principal) | CPT/HCPCS: G0103 ==